=== PATIENT | male | born 1935 | race Caucasian/White ===

== ENCOUNTER 2019-03-06 11:12 | Emergency (ER) | payer MEDICARE, BC ==
--- NOTE | 2019-03-06 11:32 | ED ---
GI/ HPI - HPI Summary HPI Summary: 83 year old M presenting to [facility] accompanied by female cousin and with a chief complaint of unable to void urine since 14:00 yesterday. The patient rates the pain 6/10 in severity. Symptoms aggravated by nothing. Symptoms alleviated by nothing. Cousin reports decreased appetite and fatigue. Patient and family are visiting [place] for a wedding. Yesterday, patient was urinating normally until lunch time at 14:00 per cousin. Last night, patient was not able to put out much per cousin. Cousin denies hx urinary problems. Patient was recently admitted for CHF and discharged on diuretics. - History of Current Complaint Chief Complaint: EDUrogenitalProblems Time Seen by Provider: 03/06/19 11:22 Stated Complaint: UNABLE TO URINATE PER PT Hx Obtained From: Patient, Family/Certified Procedural Coder - cousin Onset/Duration: Started Hours Ago - 14:00 yesterday, Still Present Timing: Constant Severity: Moderate Current Severity: Moderate - 6/10 Pain Intensity: 6 Associated Signs and Symptoms: Positive: Other: - decreased appetite, fatigue Aggravating Factor(s): Nothing Alleviating Factor(s): Nothing - Allergy/Home Medications Allergies/Adverse Reactions: Allergies Allergy/AdvReac Type Severity Reaction Status Date / Time No Known Allergies Allergy Verified 03/06/19 11:18 PMH/Surg Hx/FS Hx/Imm Hx Previously Healthy: No Cardiovascular History: Reports: Hx Congestive Heart Failure Sensory History: Reports: Hx Contacts or Glasses Opthamlomology History: Reports: Hx Contacts or Glasses - Surgical History Surgery Procedure, Year, and Place: 2 stents placed Infectious Disease History: No Infectious Disease History: Denies: Traveled Outside the [place] in Last 30 Days - Family History Known Family History: Negative: Blood Disorder - Social History Alcohol Use: None Hx Substance Use: No Substance Use Type: Reports: None Hx Tobacco Use: No Smoking Status (MU): Never Smoked Tobacco Review of Systems Positive: Fatigue Positive: Other - decreased appetite Positive: other - unable to void urine All Other Systems Reviewed And Are Negative: Yes Physical Exam - Summary Physical Exam Summary: Appearance: Well-appearing, Well-nourished, lying in bed comfortable Skin: Warm, dry, no obvious rash Eyes: sclera anicteric, no conjunctival pallor ENT: mucous membranes moist Neck: deferred Respiratory: No signs of respiratory distress Cardiovascular: Appears well perfused, pulses are nml Abdomen: deferred Musculoskeletal: Moving all 4 extremities without obvious discomfort Neurological: Awake and alert, mentation is normal, speech is fluent and appropriate Psychiatric: affect is normal, does not appear anxious or depressed exam: There is a large mass on the right side of the scrotum which patient says is chronic and due to what sounds like hydrocele. This is unchanged from his baseline. Triage Information Reviewed: Yes Vital Signs On Initial Exam: Initial Vitals Temp Pulse Resp BP Pulse Ox 98.1 F 91 18 97/53 100 03/06/19 11:15 03/06/19 11:15 03/06/19 11:15 03/06/19 11:15 03/06/19 11:15 Vital Signs Reviewed: Yes Diagnostics - Vital Signs Vital Signs Temp Pulse Resp BP Pulse Ox 03/06/19 11:15 98.1 F 91 18 97/53 100 - Laboratory Lab Statement: Any lab studies that have been ordered have been reviewed, and results considered in the medical decision making process. GIGU Course/Dx - Course Course Of Treatment: 83 year old M presenting to [facility] accompanied by female cousin and with a chief complaint of unable to void urine since 14:00 yesterday. Yesterday, patient was urinating normally until lunch time at 14:00 per cousin. Last night, patient was not able to put out much per cousin. Cousin denies hx urinary problems. Patient was recently admitted for CHF and discharged on diuretics. Physical exam findings: There is a large mass on the right side of the scrotum which patient says is chronic and due to what sounds like hydrocele. This is unchanged from his baseline. In ED, patient was not able to void urine so a handley catheter was inserted. UAs were obtained. Patient will be discharged with a urinary leg bag and with instructions to follow up from his urologist at home. He was told that he could remove the catheter himself, but he was informed that he could go into urinary retention again. The patient and his family members are agreeable with the discharge plan. - Diagnoses Provider Diagnoses: Urinary retention Discharge - Sign-Out/Discharge Documenting (check all that apply): Patient Departure - Discharge Patient Received Moderate/Deep Sedation with Procedure: No - Discharge Plan Condition: Improved Disposition: HOME Patient Education Materials: Urinary Retention in Men (ED), Handley Catheter Placement and Care (ED) Referrals: [facility] REFERRAL [Outside] Additional Instructions: I would recommend contacting your urologist when you get home. You can remove the catheter yourself, but keep in mind that you could go into retention again. - Billing Disposition and Condition Condition: IMPROVED Disposition: Home - Attestation Statements Document Initiated by Scribe: Yes Documenting Scribe: Sheila Rodriges Provider For Whom Scribe is Documenting (Include Credential): Carlos Pendleton MD Scribe Attestation: I, Sheila Rodriges, scribed for Carlos Pendleton MD on 03/06/19 at 2158. Scribe Documentation Reviewed: Yes Provider Attestation: The documentation as recorded by the Sheila anaya accurately reflects the service I personally performed and the decisions made by me, Carlos Pendleton MD Status of Scribe Document: Viewed
[2019-03-06 12:16] LABS: Urine Appearance Clear; Urine Bacteria Absent (Absent); Urine Bilirubin Negative (Negative); Urine Blood Negative (Negative); Urine Color Yellow; Urine Glucose Negative (Negative); Urine Ketones Negative (Negative); Urine Nitrite Negative (Negative); Urine Protein Negative (Negative); Urine Red Blood Cell 1+(3-5/hpf) (Absent); Urine Specific Gravity 1.009 (1.010-1.030); Urine Urobilinogen Negative (Negative); Urine White Blood Cell 2+(11-20/hpf) (Absent)
[2019-03-06 12:24] VITALS: BP 108/62
== END 2019-03-06 12:23 | disposition home or self-care (01) ==
LOC: ED 11:12
DX: R33.9 Retention of urine, unspecified (principal); R53.83 Other fatigue; N50.9 Disorder of male genital organs, unspecified; I50.9 Heart failure, unspecified; Z95.5 Presence of coronary angioplasty implant and graft
CPT/HCPCS: 51702; 81003; 81015; 87086; 99282